=== PATIENT | female | born 1985 ===

== ENCOUNTER 2021-02-03 13:00 | Inpatient (IN) | payer OTHER ==
[~2021-02-03] VITALS: Ht 160 cm; Wt 73.5 kg
[2021-02-16] MEDS ORDERED: PEPCID AC20 MG PO (08:56)
[2021-02-16] MEDS ORDERED: PRENATAL CAPLE1 EAC1 PO (08:56)
[2021-02-16] MEDS ORDERED: VALTREX1000 MG PO (08:57)
== END 2021-02-18 14:32 | disposition home or self-care (01) | DRG 788 ==
LOC: LDR 02-16 07:43 → SURG-SUITE 02-16 07:43 → LDR 02-16 11:17 → O/R 02-16 15:11 → SURG-SUITE 02-16 15:30 → OB/GYN 02-20 13:00
PROVIDERS: ADMIT Obstetrics & Gynecology; ATTEND Obstetrics & Gynecology Maternal & Fetal Medicine
PROC: 3E033VJ Introduction of Other Hormone into Peripheral Vein, Percutaneous Approach (ICD-10-PCS; 2021-02-16)
PROC: 4A1HXFZ Monitoring of Products of Conception, Cardiac Rhythm, External Approach (ICD-10-PCS; 2021-02-16)
PROC: 10D00Z1 Extraction of Products of Conception, Low, Open Approach (ICD-10-PCS; principal; 2021-02-16 14:00)
DX: O76 Abnormality in fetal heart rate and rhythm complicating labor and delivery (principal); O99.824 Streptococcus B carrier state complicating childbirth; Z3A.39 39 weeks gestation of pregnancy; Z37.0 Single live birth; Z20.822 Contact with and (suspected) exposure to COVID-19

== ENCOUNTER 2021-02-23 21:30 | Emergency (ER) | payer OTHER ==
[~2021-02-23] VITALS: Ht 160 cm; Wt 65.8 kg
[~2021-02-23 21:30] MED LIST: PEPCID AC20 MG PO; PRENATAL CAPLE1 EAC1 PO; VALTREX1000 MG PO
[2021-02-23] MEDS ORDERED: LABETALOL HCL100 MG (21:40)
[2021-02-24] MEDS ORDERED: LABETALOL HCL100 MG PO (03:11)
== END 2021-02-24 03:10 | disposition home or self-care (01) ==
LOC: ER 21:30
DX: I16.0 Hypertensive urgency (principal); I10 Essential (primary) hypertension